=== PATIENT | female | born 1935 | race Two or more races ===

== ENCOUNTER → 2024-05-16 | Outpatient (CLI) | payer MEDICARE, MEDICAID, SELFPAY ==
--- NOTE | 2024-05-16 10:15 | XR_ITS ---
EXAMINATION: PET/CT FUSION SKULL TO THIGH EXAM DATE AND TIME: May 16, 2024 1103 hours Comparison October 12, 2023 INDICATIONS: Diagnosis malignant neoplasm upper lobe left bronchus or lung, restaging CTDI:vol (mGy) 2.83 DLP: (mGycm) 188 PROCEDURE: 16.32 mCi FDG was administered intravenously To allow for distribution and uptake of radiotracer, the patient was allowed to rest quietly in a shielded room. Imaging was performed on an integrated 16-slice PET/CT scanner, with scanning from the skull base to the mid thigh. Serum blood glucose at the time of the injection was measured 87 mg/dL. CT scanning was performed without oral or intravenous contrast material. FINDINGS: Head and Neck: Bilateral hypermetabolic supraclavicular lymph nodes, up to 14 mm on the right and 12 mm on the left Chest: Interval hypermetabolic 12 mm high left periaortic metastatic lymph node Interval hypermetabolic pulmonary mass in the left upper lobe spiculated margins 44 x 26 mm Weakly hypermetabolic hilar regions and subcarinal region without discrete masses Interval weakly hypermetabolic extensive parenchymal disease left lower lobe Abdomen and Pelvis: There is no daniela hypermetabolism in retroperitoneal or pelvic chains. The spleen is normal in size and FDG avidity. Musculoskeletal: Interval hypermetabolic right first costochondral junction IMPRESSION: Interval metastatic supraclavicular lymphadenopathy Interval metastatic mediastinal lymphadenopathy Interval hypermetabolic pulmonary mass left upper lobe 44 x 26 mm Interval weakly hypermetabolic extensive parenchymal disease left lower lobe, pneumonia included in the differential Interval hypermetabolic right first costochondral junction, clinical correlation advised
== END | disposition home or self-care (01) ==
PROVIDERS: PCP Registered Nurse Community Health; Referring Provider Internal Medicine Hematology & Oncology; Visit Provider Internal Medicine Hematology & Oncology
DX: R91.8 Other nonspecific abnormal finding of lung field (principal); C79.51 Secondary malignant neoplasm of bone; C79.89 Secondary malignant neoplasm of other specified sites; C34.12 Malignant neoplasm of upper lobe, left bronchus or lung
CPT/HCPCS: 78815; A9552

== ENCOUNTER → 2024-05-27 | Outpatient (CLI) | payer MEDICARE, MEDICAID, SELFPAY ==
[2024-05-27 16:32] LABS: Basophils % (Auto) 1 % (0-2.5); Eosinophils # (Auto) 0.1 Thou/mm3 (0.0-0.5); Eosinophils % (Auto) 2 % (0-10); Hematocrit 32.4 % (36.0-46.0); Hemoglobin 10.2 g/dL (12.0-16.0); Immature Granulocytes % (Auto) 0 % (0-0); Immature Granulocytes Auto 0.01 Thou/mm3 (0.00-0.00); Lymphocytes # (Auto) 0.6 Thou/mm3 (1.0-4.8); Lymphocytes % (Auto) 15 % (10-50); Mean Corpuscular HGB Conc 31.5 g/dl (31.0-37.0); Mean Corpuscular Hemoglobin 32.1 pg (25.0-35.0); Mean Corpuscular Volume 102 fL (80-100); Monocytes # (Auto) 0.6 Thou/mm3 (0.0-0.8); Monocytes % (Auto) 15 % (0-12); Neutrophils # (Auto) 2.6 Thou/mm3 (1.8-7.7); Neutrophils % (Auto) 68 % (37-80); Nucleated Red Blood Cell % 0 /100 WBC (0); Platelet Count 115 Thou/mm3 (140-440); RDW Standard Deviation 47.8 fL (36.4-46.3); Red Blood Count 3.18 Miln/mm3 (4.00-5.20); White Blood Count 3.8 Thou/mm3 (3.6-11.0)
[2024-05-27 16:56] LABS: Alanine Aminotransferase < 7 U/L (10-49); Albumin, Serum 3.9 gm/dL (3.4-4.8); Albumin/Globulin Ratio 1.9 (1.2-2.2); Alkaline Phosphatase 77 U/L (46-116); Anion Gap 6 (7-16); Aspartate Amino Transferase 18 U/L (0-34); BUN/Creatinine Ratio 16 Ratio (12-20); Bilirubin,Total 0.8 mg/dL (0.3-1.2); Blood Urea Nitrogen 13 mg/dL (9-23); Calcium 9.8 mg/dL (8.3-10.6); Calcium (Corrected) 9.9 mg/dL (8.5-10.1); Carbon Dioxide 36.6 mMol/L (20.0-31.0); Chloride 91 mMol/L (98-107); Creatinine (Component) 0.8 mg/dL (0.6-1.3); Globulin 2.1 gm/dL (2.3-3.5); Glucose 96 mg/dL (74-106); Osmolality,Calculated 268 (275-295); Potassium 4.5 mMol/L (3.4-5.1); Sodium 134 mMol/L (136-145); eGFR > 60 See Note
== END | disposition home or self-care (01) ==
LOC: SCTO 15:09
PROVIDERS: PCP Registered Nurse Community Health; Referring Provider Nurse Practitioner Family; Visit Provider Nurse Practitioner Family
DX: C34.12 Malignant neoplasm of upper lobe, left bronchus or lung (principal)
CPT/HCPCS: 36415; 80053; 85025

== ENCOUNTER 2024-05-28 13:59 | Outpatient (RCR) | payer MEDICARE, MEDICAID, SELFPAY ==
--- NOTE | 2024-06-09 19:52 | CTCFLWUP_ITS ---
Patient: HAN WOODWARD : 1935 Page 2 of 2 FOLLOW UP NOTE DATE OF SERVICE: 05/28/2024 NAME: HAN WOODWARD ACCOUNT: [id number] : 1935 AGE: 89 REASON FOR VISIT: Lung cancer INTERVAL HISTORY: This is office follow-up visit. Ms. Woodward is here at [facility] [address]. Patient is brought in by her daughter who is her caregiver. Unfortunately, patient was not abl e to get her PET/CT done. Patient daughter reports that the day of the PET/CT they were unable to pl jeremy an IV for the contrast, patient daughter is going to reschedule patient for PET/CT. She is takin g osimertinib 40 mg p.o. daily. Tolerating medication well without any complaints of diarrhea nausea vomiting. Patient has good appetite and energy levels. Uses a wheelchair for long distances, ambul ates at home with help of daughter. She is clinically doing well. Currently she is on oxygen. ONCOLOGICAL HISTORY: Han Woodward is a 89-year-old S[place] speaking female, non-sm oker, with following oncology history. 15 years ago: She was found to have a spot in the left lung. 13 years ago: She was started on oxygen via nasal cannula for hypoxemia. 04/22/2018: Chest x-ray AP portable?significant bibasilar pneumonia. 10/15/2019: Chest x-ray PA and lateral views? 01/18/2021: chest x-ray PA and lateral views for onset of shortness of breath? 01/18/2021: CT scan of the chest with IV contrast? 08/24/2021: CT scan of the chest without IV contrast 10/14/2021: CT-guided biopsy of the left upper lobe pulmonary mass? 12/24/2021: PET/CT scan? 01/06/2022: [employer] CDx next generation sequencing study? 01/19/2022: Ms. Woodward is started on osimertinib (Tagrisso) 80 mg p.o. daily. 10/27/2022: PET/CT scan? 04/21/2023: PET/CT scan 10/12/2023: PET/CT scan? 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 Currently on osimertinib 40 mg p.o. daily. Started on Tagrisso (osimertinib) 80 mg p.o. daily on 01/19/2022. Unable to tolerate full dose of Tag risso which was causing significant diarrhea. Patient has never smoked. Never exposed to secondhand smoking. Bronchiectasis/COPD. Currently patient is on oxygen via nasal cannula. 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 daily OTHER MEDICAL HISTORY/CONDITIONS: Asthma HTN Appendectomy -13yrs ago Cholecystectomy - 13 yrs ago Jose Enrique cataract surg - FAMILY HISTORY: Patient?denies?family?cancer?history. SOCIAL HISTORY: Occupational?History:?Retired Education?Level:?Completed something less than 8th grade Marital?Status:? Tobacco?Pack?per?Day:?0 Tobacco?Use?Years:?0 Tobacco?Use:?0 ETOH?Use:?Denies Drug?Note:?Denies Social History Note:?Lives with daughter [employer] HISTORY: Menarche?-?Age:?15 Menopause:?41 :?18 Live?Births:?12 Age?1st?:?18 MEDICATIONS: 1. acetaminophen - 650 mg 1 tab Three times a day 2. albuterol - As directed 3. Breo Ellipta - 200-25 mcg/dose As directed 4. FeosoL - 325 mg (65 mg iron) 1 tab Twice a Day 5. glycerin (adult) - 1 Suppository one rectal suppository prn constipation 6. Imodium A-D - 2 mg 1 Capsule Twice a Day 7. lisinopril - 2.5 mg Daily 8. Lomotil - 2.5-0.025 mg 2 tab Twice a Day 9. montelukast - 10 mg 1 tab Each Day 10. oxybutynin chloride - 5 mg 1 tab Every day before sleep 11. Proctosol HC - 2.5 % 12. Tagrisso - 40 mg 1 tab Daily Medications Last Reconciled by Lissett Abdi MA on 05/28/2024 ALLERGIES: No Known Drug Allergies REVIEW OF SYSTEMS: A complete 14-point review of systems was performed and is negative except as noted in interval histo ry. PHYSICAL EXAMINATION: VITAL SIGNS: Temperature?98.7, B/P?116/66, Oxygen?Saturation?91% PAIN: 0 - No pain EYE: Conjunctivae is white. MOUTH: Oral cavity is dry. NECK: Supple, no adenopathy CHEST: Clear to auscultation. No wheezes or rales audible. On oxygen via nasal cannula. CARDIAC: Rhythm regular, no murmurs or gallops present. ABDOMEN: Soft. No hepatomegaly. No splenomegaly. EXTREMITIES: No pedal edema or cyanosis. LABORATORY DATA: I have personally reviewed and interpreted each of the patient?s relevant lab tests, abnormal finding s are below: Date 05/27/24 ??WHITE?BLOOD?COUNT?(Thou/mm3) 3.8 ??RED?BLOOD?COUNT?(Miln/mm3) 3.18?L ??HEMOGLOBIN?(gm/dl) 10.2?L ??HEMATOCRIT?(%) 32.4?L ??PLATELET?COUNT?(Thou/mm3) 115?L ??NEUTROPHILS?%,?AUTO?(%) 68 ??LYMPH?%,?AUTO?(%) 15 ??NEUTROPHILS,?AUTO?(Thou/mm3) 2.6 IMPRESSION/PLAN: Metastatic lung cancer Patient have EGFR mutation and has been on Tagrisso Patient here to review PET CT scan 05/16/[address] scan shows progression of disease Patient has been complaining of headache I will get MRI brain to evaluate for metastatic disease Patient's daughter is a primary caregiver Patient need biopsy to see if she has developed a new mutation or to start her on chemotherapy Patients do not want to biopsy or chemotherapy and patient also endorses her feeling that she does no t want any further interventions I will continue Tagrisso for now Discussed hospice with the family Patient's family will discuss it among themselves and decide and will let me know MRI brain CBC CMP RETURN TO CLINIC: Return to clinic in a week for reassessment and hospice referral BILLING AND COMPLIANCE: I reviewed external records from providers outside my specialty as summarized above. I spent a total of 50 minutes on this patient?s care on the day of their visit excluding time spent related to any bi lled procedures. This time includes time spent with the patient as well as time spent documenting in the medical record, reviewing patients records and tests, obtaining history, placing orders, communi cating with other healthcare professionals, counseling the patient, family or caregiver, and/or care coordination for the diagnoses above. Electronically Signed by: Josse Stone MD T: 7:49 PM CC: PCP: Soraida Pool Referring: Soraida Pool This document was completed utilizing speech recognition software. Grammatical errors, random word in sertions, pronoun errors, and incomplete sentences are an occasional consequence of this system due t o software limitations, ambient noise, and hardware issues. Any formal questions or concerns about th e content, text or information contained within the body of this dictation should be directly address ed to the provider for clarification.
== END 2024-06-06 23:59 | disposition home or self-care (01) ==
LOC: SCTC 13:59
PROVIDERS: PCP Registered Nurse Community Health; Referring Provider Registered Nurse Community Health; Visit Provider Internal Medicine Hematology & Oncology
DX: C34.12 Malignant neoplasm of upper lobe, left bronchus or lung (principal)
CPT/HCPCS: 99213; G0463

== ENCOUNTER → 2024-05-30 | Outpatient (CLI) | payer MEDICARE, MEDICAID, SELFPAY ==
--- NOTE | 2024-05-30 14:15 | XR_ITS ---
Examination: MRI brain with intravenous contrast TECHNIQUE: Multiple axial sagittal coronal brain MRI images post intravenous administration 8 cc gadolinium Exam date and time: May 30, 2024 1500 hours INDICATIONS: Lung cancer diagnosis 2020, staging FINDINGS: Ventricles are not enlarged No mass effect upon the ventricular system 4 mm enhancing lesion right cerebellar hemisphere axial image 5 4 mm enhancing lesion right occipital lobe axial image 9 4 mm enhancing lesion right occipital lobe axial image 11 6 mm enhancing left temporal lobe lesion axial image 11 3 mm enhancing lesion right caudate nucleus image 12 3 mm enhancing lesion left basal ganglia 12 2 mm enhancing lesion posterior right temporal lobe image 12 4 mm enhancing lesion left parietal lobe image 16 No mass effect IMPRESSION: 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
== END | disposition home or self-care (01) ==
PROVIDERS: PCP Registered Nurse Community Health; Referring Provider Internal Medicine Hematology & Oncology; Visit Provider Internal Medicine Hematology & Oncology
DX: C79.31 Secondary malignant neoplasm of brain (principal); C34.12 Malignant neoplasm of upper lobe, left bronchus or lung
CPT/HCPCS: 70552; A9579